=== PATIENT | female | born 1960 | race American Indian/Alaskan Native ===

== ENCOUNTER 2020-12-26 17:16 | Emergency (ER) | payer MEDICAID ==
--- NOTE | 2020-12-26 18:00 | Emergency Department Report ---
Stated Complaint: ARM PAIN/WEAKNESS - HPI History of Present Illness: This is a 60-year-old female with history of CVA and diabetes mellitus who presents with a myriad of concerns. She stated that her landlord called 911 because he she was concerned about her medical state. Initial call to EMS, elevated blood sugar. Upon arrival patient is concerned about a knot at the back of her head. She also states that she has muscle spasms of her right arm. She has minimal strength. She has severe weakness in her right upper extremity. She stated that her left side was paralyzed from 2 previous CVA not the right side. She is unclear when she started to have right arm weakness. She thinks that the arm weakness occurred "the day before last." Screening orders include CT head, CBC chemistry PT PTT. Differential diagnosis includes old CVA, subacute CVA MSE screening note: Focused history and physical exam performed. Due to findings the following was ordered: ED Disposition for MSE Condition: Stable
[2020-12-26 18:31] VITALS: BP 118/79
[2020-12-26 18:53] LABS: Basophils % (Auto) 0.3 % (0.0-1.8); Eosinophils # (Auto) 0.1 K/mm3 (0.0-0.4); Eosinophils % (Auto) 1.6 % (0.0-4.3); Hematocrit 38.4 % (30.3-42.9); Hemoglobin 12.4 gm/dl (10.1-14.3); Lymphocytes # (Auto) 2.4 K/mm3 (1.2-5.4); Lymphocytes % (Auto) 52.7 % (13.4-35.0); Mean Corpuscular HGB Conc 32 % (30-34); Mean Corpuscular Volume 90 fl (79-97); Monocytes # (Auto) 0.4 K/mm3 (0.0-0.8); Monocytes % (Auto) 8.3 % (0.0-7.3); Platelet Count 251 K/mm3 (140-440); Red Blood Count 4.27 M/mm3 (3.65-5.03); Red Cell Distribution Width 18.2 % (13.2-15.2)
[2020-12-26 18:56] LABS: Blood Urea Nitrogen 12 mg/dL (7-17); Calcium 8.8 mg/dL (8.4-10.2); Hemolysis Index 11
[2020-12-26 19:03] LABS: BUN/Creatinine Ratio 17
[2020-12-26 19:05] LABS: INR 0.91 (0.87-1.13)
[2020-12-26 19:06] LABS: Partial Thromboplastin Time 26.6 Sec. (24.2-36.6)
--- NOTE | 2020-12-26 20:59 | Cat Scan Report ---
CT HEAD WITHOUT CONTRAST INDICATION / CLINICAL INFORMATION: RIGHT arm weakness. TECHNIQUE: All CT scans at this location are performed using CT dose reduction for ALARA by means of automated e xposure control. COMPARISON: None available. FINDINGS: HEMORRHAGE: No evidence of intracranial hemorrhage or extra-axial fluid collection. EXTRA-AXIAL SPACES: Cortical sulci, sylvian fissures and basilar cisterns have an unremarkable appear ance. VENTRICULAR SYSTEM: The third and lateral ventricles are the upper limit of normal in size. CEREBRAL PARENCHYMA: No areas of abnormal brain parenchymal attenuation are identified. There is no i ndication of recent infarction. MIDLINE SHIFT OR HERNIATION: There is no mass effect. CEREBELLUM / BRAINSTEM: Brainstem and cerebellum have an unremarkable appearance. MIDLINE STRUCTURES:No abnormalities of the pituitary gland or pineal region are identified. INTRACRANIAL VESSELS:No abnormalities are identified on this noncontrast head CT. ORBITS: Status post left-sided cataract surgery. No additional abnormality. SOFT TISSUES of HEAD: No significant abnormality. CALVARIUM: Evaluation of bone windows reveals no abnormalities. PARANASAL SINUSES / MASTOID AIR CELLS: Visualized portions of the paranasal sinuses are free from inf lammatory mucosal disease. Mastoid air cells are normally pneumatized. IMPRESSION: 1. No acute intracranial abnormality. Signer Name: Nael Cummings MD Signed: 12/26/2020 8:54 PM Workstation Name: [id number]
--- NOTE | 2020-12-26 22:43 | Emergency Department Report ---
ED General Adult HPI - General Chief complaint: Hyperglycemia Stated complaint: ARM PAIN/WEAKNESS Time Seen by Provider: 12/26/20 21:52 Source: patient, EMS Mode of arrival: Ambulatory Limitations: No Limitations - Related Data Previous Rx's Medication Instructions Recorded Last Taken Type Cyclobenzaprine [Flexeril] 10 mg PO TID PRN #30 tablet 12/26/20 Unknown Rx HYDROcodone/APAP 5-325 [[place] 1 each PO Q6HR PRN #10 tablet 12/26/20 Unknown Rx 5/325] Allergies Allergy/AdvReac Type Severity Reaction Status Date / Time No Known Allergies Allergy Unverified 12/26/20 18:25 ED Review of Systems ROS: Stated complaint: ARM PAIN/WEAKNESS Other details as noted in HPI ED Past Medical Hx - Past Medical History Previous Medical History?: Yes Hx Hypertension: Yes Hx CVA: Yes Hx Diabetes: Yes Hx Arthritis: Yes Additional medical history: Carpal tunnel - Surgical History Past Surgical History?: Yes Hx Cholecystectomy: Yes Hx Appendectomy: Yes Additional Surgical History: Left knee, Total right hip, Carpel tunnel - Social History Smoking Status: Current Every Day Smoker Substance Use Type: Alcohol, Prescribed - Medications Home Medications: Home Medications Medication Instructions Recorded Confirmed Last Taken Type Cyclobenzaprine [Flexeril] 10 mg PO TID PRN #30 tablet 12/26/20 Unknown Rx HYDROcodone/APAP 5-325 [[place] 1 each PO Q6HR PRN #10 tablet 12/26/20 Unknown Rx 5/325] ED Physical Exam - General Limitations: No Limitations ED Course Vital Signs 12/26/20 18:29 Temperature 98.5 F Pulse Rate 96 H Respiratory 20 Rate Blood Pressure 118/79 O2 Sat by Pulse 97 Oximetry ED Medical Decision Making - Lab Data Result diagrams: 12/26/20 18:19 12/26/20 18:19 - Radiology Data Radiology results: report reviewed atient ID: [id number] Gender: Female Date of : 1960 Referring Provider: JEANCARLOS MANDUJANO Organization: [facility] Accession Number: [id number] Requested Date: December 26, 2020 17:56 Report Status: Final Requested Procedure: 1 Procedure Description: CT head/brain wo con Modality: CT Findings Reporting MD: Nael Cummings Dictation Time: December 26, 2020 19:54 Streetcar Repairer Helper: Not available Collar Packer Date: CT HEAD WITHOUT CONTRAST INDICATION / CLINICAL INFORMATION: RIGHT arm weakness. TECHNIQUE: All CT scans at this location are performed using CT dose reduction for ALARA by means of automated exposure control. COMPARISON: None available. FINDINGS: HEMORRHAGE: No evidence of intracranial hemorrhage or extra-axial fluid collection. EXTRA-AXIAL SPACES: Cortical sulci, sylvian fissures and basilar cisterns have an unremarkable appearance. VENTRICULAR SYSTEM: The third and lateral ventricles are the upper limit of normal in size. CEREBRAL PARENCHYMA: No areas of abnormal brain parenchymal attenuation are identified. There is no indication of recent infarction. MIDLINE SHIFT OR HERNIATION: There is no mass effect. CEREBELLUM / BRAINSTEM: Brainstem and cerebellum have an unremarkable appearance . MIDLINE STRUCTURES:No abnormalities of the pituitary gland or pineal region are identified. INTRACRANIAL VESSELS:No abnormalities are identified on this noncontrast head CT. ORBITS: Status post left-sided cataract surgery. No additional abnormality. SOFT TISSUES of HEAD: No significant abnormality. CALVARIUM: Evaluation of bone windows reveals no abnormalities. PARANASAL SINUSES / MASTOID AIR CELLS: Visualized portions of the paranasal sinuses are free from inflammatory mucosal disease. Mastoid air cells are normally pneumatized. IMPRESSION: 1. No acute intracranial abnormality. Signer Name: Nael Cummings MD Signed: 12/26/2020 7:54 PM Workstation Name: [id number] Critical care attestation.: If time is entered above; I have spent that time in minutes in the direct care of this critically ill patient, excluding procedure time. ED Disposition Clinical Impression: Muscle spasm, Cyst, Hyperglycemia due to type 2 diabetes mellitus Disposition: 01 HOME / SELF CARE / HOMELESS Is pt being admited?: No Does the pt Need Aspirin: No Condition: Stable Instructions: Diabetes Mellitus Type 2 in Adults (ED) Prescriptions: Cyclobenzaprine [Flexeril] 10 mg PO TID PRN #30 tablet PRN Reason: Muscle Spasm HYDROcodone/APAP 5-325 [[place] 5/325] 1 each PO Q6HR PRN #10 tablet PRN Reason: Pain Referrals: RICHELLE LEBLANC MD [Staff Physician] - 3-5 Days
--- NOTE | 2020-12-26 23:06 | Emergency Department Report ---
ED General Adult HPI - General Chief complaint: Hyperglycemia Stated complaint: ARM PAIN/WEAKNESS PUI?: No Time Seen by Provider: 12/26/20 21:52 Source: patient, EMS Mode of arrival: Ambulatory Limitations: No Limitations - History of Present Illness Initial comments: This is a 60-year-old female with history of CVA and diabetes mellitus who presents with a myriad of concerns. She stated that her landlord called 911 because he she was concerned about her medical state. Initial call to EMS, elevated blood sugar. Upon arrival patient is concerned about a knot at the back of her head. She also states that she has muscle spasms of her right arm. She has minimal strength. She has severe weakness in her right upper extremity. She stated that her left side was paralyzed from 2 previous CVA not the right side. She is unclear when she started to have right arm weakness. She thinks that the arm weakness occurred "the day before last." -: Gradual, unknown Location: head, right, upper extremity Consistency: constant Improves with: none Worsens with: none Associated Symptoms: other ("I really need my Levemir.") Treatments Prior to Arrival: none - Related Data Previous Rx's Medication Instructions Recorded Last Taken Type Cyclobenzaprine [Flexeril] 10 mg PO TID PRN #30 tablet 12/26/20 Unknown Rx HYDROcodone/APAP 5-325 [[place] 1 each PO Q6HR PRN #10 tablet 12/26/20 Unknown Rx 5/325] Insulin Detemir [Levemir VIAL] 22 unit SQ QHS #1 vial 12/26/20 Unknown Rx Allergies Allergy/AdvReac Type Severity Reaction Status Date / Time No Known Allergies Allergy Unverified 12/26/20 18:25 ED Review of Systems ROS: Stated complaint: ARM PAIN/WEAKNESS Other details as noted in HPI Comment: All other systems reviewed and negative Constitutional: denies: chills, fever, malaise ENT: denies: throat pain Respiratory: denies: cough, shortness of breath Cardiovascular: denies: chest pain Skin: lesions Neurological: weakness. denies: numbness, paresthesias ED Past Medical Hx - Past Medical History Previous Medical History?: Yes Hx Hypertension: Yes Hx CVA: Yes Hx Diabetes: Yes Hx Arthritis: Yes Additional medical history: Carpal tunnel - Surgical History Past Surgical History?: Yes Hx Cholecystectomy: Yes Hx Appendectomy: Yes Additional Surgical History: Left knee, Total right hip, Carpel tunnel - Social History Smoking Status: Current Every Day Smoker Substance Use Type: Alcohol, Prescribed - Medications Home Medications: Home Medications Medication Instructions Recorded Confirmed Last Taken Type Cyclobenzaprine [Flexeril] 10 mg PO TID PRN #30 tablet 12/26/20 Unknown Rx HYDROcodone/APAP 5-325 [[place] 1 each PO Q6HR PRN #10 tablet 12/26/20 Unknown Rx 5/325] Insulin Detemir [Levemir VIAL] 22 unit SQ QHS #1 vial 12/26/20 Unknown Rx ED Physical Exam - General Limitations: No Limitations General appearance: alert, in no apparent distress - Head Head exam: Present: atraumatic, normocephalic, other (Unable to palpate or visualize scalp lesion patient points to the occiput) - Eye Eye exam: Present: normal appearance - ENT ENT exam: Present: mucous membranes moist - Neck Neck exam: Present: normal inspection, full ROM - Respiratory Respiratory exam: Present: normal lung sounds bilaterally. Absent: respiratory distress, wheezes, rales, rhonchi - Cardiovascular Cardiovascular Exam: Present: regular rate, normal rhythm, normal heart sounds. Absent: systolic murmur, diastolic murmur, rubs, gallop - GI/Abdominal GI/Abdominal exam: Present: soft, normal bowel sounds. Absent: distended, tenderness, guarding, rebound - Extremities Exam Extremities exam: Present: normal inspection - Neurological Exam Neurological exam: Present: alert, oriented X3, CN II-XII intact, normal gait. Absent: motor sensory deficit - Expanded Neurological Exam Expanded Patient oriented to: Present: person, place, time Speech: Present: fluid speech Sensory exam: Upper Extremity Light Touch: Normal Motor strength exam: RUE: 5, LUE: 5, RLE: 5, LLE: 5 - Psychiatric Psychiatric exam: Present: normal affect, normal mood - Skin Skin exam: Present: warm, dry, intact, normal color. Absent: rash ED Course Vital Signs 12/26/20 18:29 Temperature 98.5 F Pulse Rate 96 H Respiratory 20 Rate Blood Pressure 118/79 O2 Sat by Pulse 97 Oximetry ED Medical Decision Making - Lab Data Result diagrams: 12/26/20 18:19 12/26/20 18:19 Laboratory Results - last 24 hr 12/26/20 12/26/20 12/26/20 18:19 18:19 18:19 WBC 4.5 RBC 4.27 Hgb 12.4 Hct 38.4 MCV 90 MCH 29 MCHC 32 RDW 18.2 H Plt Count 251 Lymph % (Auto) 52.7 H Tripp % (Auto) 8.3 H Eos % (Auto) 1.6 Baso % (Auto) 0.3 Lymph # (Auto) 2.4 Tripp # (Auto) 0.4 Eos # (Auto) 0.1 Baso # (Auto) 0.0 Seg Neutrophils % 37.1 L Seg Neutrophils # 1.7 L PT 12.9 INR 0.91 APTT 26.6 Sodium 132 L Potassium 4.3 Chloride 99.0 Carbon Dioxide 21 L Anion Gap 16 BUN 12 Creatinine 0.7 Estimated GFR > 60 BUN/Creatinine Ratio 17 Glucose 471 H Calcium 8.8 - Radiology Data Radiology results: report reviewed Patient Name: JORGE JONES Gender: Female Date of : 1960 Referring Provider: JEANCARLOS MANDUJANO Organization: [facility] Accession Number: [id number] Requested Date: December 26, 2020 17:56 Report Status: Final Requested Procedure: 1 Procedure Description: CT head/brain wo con Modality: CT Findings Reporting MD: Nael Cummings Dictation Time: December 26, 2020 19:54 Senior Examiner: Not available Health Center Manager Date: CT HEAD WITHOUT CONTRAST INDICATION / CLINICAL INFORMATION: RIGHT arm weakness. TECHNIQUE: All CT scans at this location are performed using CT dose reduction for ALARA by means of automated exposure control. COMPARISON: None available. FINDINGS: HEMORRHAGE: No evidence of intracranial hemorrhage or extra-axial fluid collection. EXTRA-AXIAL SPACES: Cortical sulci, sylvian fissures and basilar cisterns have an unremarkable appearance. VENTRICULAR SYSTEM: The third and lateral ventricles are the upper limit of normal in size. CEREBRAL PARENCHYMA: No areas of abnormal brain parenchymal attenuation are identified. There is no indication of recent infarction. MIDLINE SHIFT OR HERNIATION: There is no mass effect. CEREBELLUM / BRAINSTEM: Brainstem and cerebellum have an unremarkable appearance. MIDLINE STRUCTURES:No abnormalities of the pituitary gland or pineal region are identified. INTRACRANIAL VESSELS:No abnormalities are identified on this noncontrast head CT. ORBITS: Status post left-sided cataract surgery. No additional abnormality. SOFT TISSUES of HEAD: No significant abnormality. CALVARIUM: Evaluation of bone windows reveals no abnormalities. PARANASAL SINUSES / MASTOID AIR CELLS: Visualized portions of the paranasal sinuses are free from inflammatory mucosal disease. Mastoid air cells are normally pneumatized. IMPRESSION: 1. No acute intracranial abnormality. Signer Name: Nael Cummings MD Signed: 12/26/2020 7:54 PM Workstation Name: [id number] - Medical Decision Making 1. Right arm weakness: Unfortunately patient exhibited malingering behavior while on the EMS stretcher. I attempted to screen patient for stroke. She would lift up her right upper extremity with her left upper extremity and then let it flat. When she was escorted to the waiting room, she used her right arm fluently. Unclear of the source for patient secondary gain. She obviously needed to establish primary care. We had a pleasant interaction. She recently moved from [facility] to be with her 2 sisters. She desires a new primary care physician. 2. Cyst on the scalp: No cyst on physical exam. No lesions seen on CT of the head. 3. Acute hyperglycemia due to untreated diabetes mellitus: I have prescribed Levemir with 3 refills. Also refer patient to internal medicine physician Critical care attestation.: If time is entered above; I have spent that time in minutes in the direct care of this critically ill patient, excluding procedure time. ED Disposition Clinical Impression: Cyst, Hyperglycemia due to type 2 diabetes mellitus, Muscle spasm Disposition: 01 HOME / SELF CARE / HOMELESS Is pt being admited?: No Does the pt Need Aspirin: No Condition: Stable Instructions: Diabetes Mellitus Type 2 in Adults (ED) Prescriptions: Insulin Detemir [Levemir VIAL] 22 unit SQ QHS #1 vial Cyclobenzaprine [Flexeril] 10 mg PO TID PRN #30 tablet PRN Reason: Muscle Spasm HYDROcodone/APAP 5-325 [[place] 5/325] 1 each PO Q6HR PRN #10 tablet PRN Reason: Pain Referrals: RICHELLE LEBLANC MD [Staff Physician] - 3-5 Days
== END 2020-12-26 22:47 | disposition home or self-care (01) ==
LOC: ED 17:16
DX: E11.65 Type 2 diabetes mellitus with hyperglycemia (principal); M62.838 Other muscle spasm; L27.8 Dermatitis due to other substances taken internally; E11.8 Type 2 diabetes mellitus with unspecified complications; I10 Essential (primary) hypertension; F10.20 Alcohol dependence, uncomplicated; M19.90 Unspecified osteoarthritis, unspecified site
CPT/HCPCS: 36415; 70450; 80048; 85025; 85610; 85730; 99284

== ENCOUNTER 2020-12-28 14:05 | Emergency (ER) | payer MEDICAID ==
[2020-12-28] MEDS ORDERED: SODIUM CHLORIDE 0.9% 1000 ML 1,000 ML IV ONE (15:06)
--- NOTE | 2020-12-28 15:11 | Emergency Department Report ---
ED Syncope HPI - General Chief Complaint: Weakness Stated Complaint: SYNCOPE Time Seen by Provider: 12/28/20 14:42 Source: patient Exam Limitations: no limitations - History of Present Illness Initial Comments: 60-year female with a past medical history of CVA x2 with residual right-sided deficits and diabetes currently on insulin presents to the hospital complaints of syncopal episode prior to arrival. Patient states she was walking to the store when her vision became blurry and she passed out. She denies any preceding symptoms of headache, chest pain, shortness of breath, or abdominal pain. She states otherwise she was feeling fine and denies nausea, vomiting, diarrhea, melena, medic easier, vaginal bleeding, dysuria, hematuria, fever, or loss of sense of taste or smell. Patient does have cough with clear sputum. She does smoke cigarettes. She has been immunized for Covid. Patient ambulates with a cane at her baseline secondary to previous CVA. Patient reports a previous history of substance abuse but denies current drug abuse or alcohol abuse. Patient was seen here yesterday for elevated blood sugar, concern for knot in the back of her head, and concerned about muscle spasms in her right arm. She was also noted to have right arm weakness with unclear onset but was also seen using the right arm without difficulty with suspected malingering. Patient was ultimately discharged with Flexeril, Garfield, and Levemir. Patient states she has not taken the Garfield since discharge. She states her last dose of insulin was Levemir last night and Humalog this morning. Patient states she ate a smaller amount than usual this morning she states her right side has been weak since her previous stroke Patient is requesting pain medication for the "cyst" on the back of her head diagnosed yesterday. The pain to the posterior scalp is constant and worse with palpation. She declined Tylenol because she states it will not work. I informed her that her blood pressure is too low to receive narcotics at this time. She is also requesting food but has been denied because she is hyperglycemic. Despite her elevated glucose during her visit yesterday and today patient states she has been compliant with her insulin therapy. - Related Data Allergies/Adverse Reactions: Allergies ibuprofen Allergy (Mild, Verified 12/28/20 14:50) Hives tramadol Allergy (Verified 12/28/20 14:51) Rash Home Medications: Ambulatory Orders Cyclobenzaprine [Flexeril] 10 mg PO TID PRN #30 tablet 12/26/20 HYDROcodone/APAP 5-325 [Garfield 5/325] 1 each PO Q6HR PRN #10 tablet 12/26/20 Insulin Detemir [Levemir VIAL] 22 unit SQ QHS #1 vial 12/26/20 ED Review of Systems ROS: Stated complaint: SYNCOPE Other details as noted in HPI Comment: All other systems reviewed and negative ED Past Medical Hx - Past Medical History Hx Hypertension: Yes Hx CVA: Yes Hx Heart Attack/AMI: Yes Hx Diabetes: Yes Hx Arthritis: Yes Additional medical history: Carpal tunnel right. right hip replacement. left knee replacement - Surgical History Hx Cholecystectomy: Yes Hx Appendectomy: Yes Additional Surgical History: Left knee, Total right hip, Carpel tunnel - Social History Smoking Status: Former Smoker - Medications Home Medications: Home Medications Medication Instructions Recorded Confirmed Last Taken Type Cyclobenzaprine [Flexeril] 10 mg PO TID PRN #30 tablet 12/26/20 Unknown Rx HYDROcodone/APAP 5-325 [Garfield 1 each PO Q6HR PRN #10 tablet 12/26/20 Unknown Rx 5/325] Insulin Detemir [Levemir VIAL] 22 unit SQ QHS #1 vial 12/26/20 Unknown Rx ED Physical Exam - General Limitations: No Limitations - Other Other exam information: General: No acute distress Head: Atraumatic Eyes: normal appearance ENT: Moist mucous membranes Neck: Normal appearance, no midline tenderness Chest: Clear to auscultation bilaterally CV: Regular rate and rhythm Abdomen: Soft, previous surgical scars noted. Reducible umbilical hernia. Nontender abdomen without rebound or guarding Back: Normal inspection Extremity: Several small nodules to right posterior wrist secondary to carpal tunnel Neuro: Alert O x 3, speech clear, right arm 4/5 strength, right leg 3/5 stre ngth. Left arm 4/5, left leg 4/5 Psych: Appropriate behavior Skin: No rash ED Course Vital Signs 12/28/20 12/28/20 12/28/20 14:27 14:30 14:46 Temperature Pulse Rate 100 H 102 H 98 H Respiratory 11 L 20 18 Rate Blood Pressure 80/42 O2 Sat by Pulse 98 Oximetry 12/28/20 12/28/20 12/28/20 15:00 15:10 16:00 Temperature 97.9 F Pulse Rate 99 H 92 H Respiratory 22 15 Rate Blood Pressure 74/51 83/50 O2 Sat by Pulse 98 95 Oximetry - Reevaluation(s) Reevaluation #1: 12/28/20 16:47 IV fluids just initiated. Patient's blood pressure currently 103/43. She is sitting on the side of bed upset because we are refusing to feed her. Once again I tried to explain that her sugar is in the 300-400. Once we can stabilize her sugar we will gladly feed her. Her response is she is unconcerned about her sugar being high because it has been in the 500s before. I once again explained not intentionally trying to start her. I have insulin ordered. Patient wants her IV out and wants to sign out AGAINST MEDICAL ADVICE ED Medical Decision Making - Lab Data Result diagrams: 12/28/20 15:16 12/28/20 15:16 Lab Results 12/28/20 12/28/20 12/28/20 Range/Units 15:07 15:16 15:16 WBC 4.3 L (4.5-11.0) K/mm3 RBC 4.46 (3.65-5.03) M/mm3 Hgb 12.9 (10.1-14.3) gm/dl Hct 38.7 (30.3-42.9) % MCV 87 (79-97) fl MCH 29 (28-32) pg MCHC 33 (30-34) % RDW 17.8 H (13.2-15.2) % Plt Count 258 (140-440) K/mm3 Lymph % (Auto) 35.7 H (13.4-35.0) % Amelia % (Auto) 7.4 H (0.0-7.3) % Eos % (Auto) 1.8 (0.0-4.3) % Baso % (Auto) 0.5 (0.0-1.8) % Lymph # (Auto) 1.5 (1.2-5.4) K/mm3 Amelia # (Auto) 0.3 (0.0-0.8) K/mm3 Eos # (Auto) 0.1 (0.0-0.4) K/mm3 Baso # (Auto) 0.0 (0.0-0.1) K/mm3 Seg Neutrophils % 54.6 (40.0-70.0) % Seg Neutrophils # 2.4 (1.8-7.7) K/mm3 PT 13.0 (12.2-14.9) Sec. INR 0.92 (0.87-1.13) VBG pH (7.320-7.420) Sodium (137-145) mmol/L Potassium (3.6-5.0) mmol/L Chloride (98-107) mmol/L Carbon Dioxide (22-30) mmol/L Anion Gap mmol/L BUN (7-17) mg/dL Creatinine (0.6-1.2) mg/dL Estimated GFR ml/min BUN/Creatinine Ratio % Glucose (65-100) mg/dL POC Glucose 434 H (70-105) mg/dL Calcium (8.4-10.2) mg/dL Magnesium (1.7-2.3) mg/dL Total Bilirubin (0.1-1.2) mg/dL AST (5-40) units/L ALT (7-56) units/L Alkaline Phosphatase (35-129) units/L Total Creatine Kinase (30-135) units/L CK-MB (CK-2) (0.0-4.0) ng/mL CK-MB (CK-2) Rel Index (0-4) Troponin T (0.00-0.029) ng/mL Total Protein (6.3-8.2) g/dL Albumin (3.9-5) g/dL Albumin/Globulin Ratio % Acetaminophen (10.0-30.0) ug/mL Plasma/Serum Alcohol (0-0.07) % 12/28/20 12/28/20 12/28/20 Range/Units 15:16 15:16 15:16 WBC (4.5-11.0) K/mm3 RBC (3.65-5.03) M/mm3 Hgb (10.1-14.3) gm/dl Hct (30.3-42.9) % MCV (79-97) fl MCH (28-32) pg MCHC (30-34) % RDW (13.2-15.2) % Plt Count (140-440) K/mm3 Lymph % (Auto) (13.4-35.0) % Amelia % (Auto) (0.0-7.3) % Eos % (Auto) (0.0-4.3) % Baso % (Auto) (0.0-1.8) % Lymph # (Auto) (1.2-5.4) K/mm3 Amelia # (Auto) (0.0-0.8) K/mm3 Eos # (Auto) (0.0-0.4) K/mm3 Baso # (Auto) (0.0-0.1) K/mm3 Seg Neutrophils % (40.0-70.0) % Seg Neutrophils # (1.8-7.7) K/mm3 PT (12.2-14.9) Sec. INR (0.87-1.13) VBG pH 7.385 (7.320-7.420) Sodium 129 L (137-145) mmol/L Potassium 5.0 (3.6-5.0) mmol/L Chloride 96.9 L (98-107) mmol/L Carbon Dioxide 23 (22-30) mmol/L Anion Gap 14 mmol/L BUN 13 (7-17) mg/dL Creatinine 0.7 (0.6-1.2) mg/dL Estimated GFR > 60 ml/min BUN/Creatinine Ratio 19 % Glucose 391 H (65-100) mg/dL POC Glucose (70-105) mg/dL Calcium 9.6 (8.4-10.2) mg/dL Magnesium 2.00 (1.7-2.3) mg/dL Total Bilirubin 0.40 (0.1-1.2) mg/dL AST 13 (5-40) units/L ALT 10 (7-56) units/L Alkaline Phosphatase 123 (35-129) units/L Total Creatine Kinase 35 (30-135) units/L CK-MB (CK-2) < 1.0 (0.0-4.0) ng/mL CK-MB (CK-2) Rel Index 2.8 (0-4) Troponin T < 0.010 (0.00-0.029) ng/mL Total Protein 7.2 (6.3-8.2) g/dL Albumin 3.6 L (3.9-5) g/dL Albumin/Globulin Ratio 1.0 % Acetaminophen 5.0 L (10.0-30.0) ug/mL Plasma/Serum Alcohol (0-0.07) % 08/30/21 Range/Units 15:16 WBC (4.5-11.0) K/mm3 RBC (3.65-5.03) M/mm3 Hgb (10.1-14.3) gm/dl Hct (30.3-42.9) % MCV (79-97) fl MCH (28-32) pg MCHC (30-34) % RDW (13.2-15.2) % Plt Count (140-440) K/mm3 Lymph % (Auto) (13.4-35.0) % Amelia % (Auto) (0.0-7.3) % Eos % (Auto) (0.0-4.3) % Baso % (Auto) (0.0-1.8) % Lymph # (Auto) (1.2-5.4) K/mm3 Amelia # (Auto) (0.0-0.8) K/mm3 Eos # (Auto) (0.0-0.4) K/mm3 Baso # (Auto) (0.0-0.1) K/mm3 Seg Neutrophils % (40.0-70.0) % Seg Neutrophils # (1.8-7.7) K/mm3 PT (12.2-14.9) Sec. INR (0.87-1.13) VBG pH (7.320-7.420) Sodium (137-145) mmol/L Potassium (3.6-5.0) mmol/L Chloride (98-107) mmol/L Carbon Dioxide (22-30) mmol/L Anion Gap mmol/L BUN (7-17) mg/dL Creatinine (0.6-1.2) mg/dL Estimated GFR ml/min BUN/Creatinine Ratio % Glucose (65-100) mg/dL POC Glucose (70-105) mg/dL Calcium (8.4-10.2) mg/dL Magnesium (1.7-2.3) mg/dL Total Bilirubin (0.1-1.2) mg/dL AST (5-40) units/L ALT (7-56) units/L Alkaline Phosphatase (35-129) units/L Total Creatine Kinase (30-135) units/L CK-MB (CK-2) (0.0-4.0) ng/mL CK-MB (CK-2) Rel Index (0-4) Troponin T (0.00-0.029) ng/mL Total Protein (6.3-8.2) g/dL Albumin (3.9-5) g/dL Albumin/Globulin Ratio % Acetaminophen (10.0-30.0) ug/mL Plasma/Serum Alcohol < 0.01 (0-0.07) % - Medical Decision Making 60-year-old female presents to the hospital for the second day interval. This time for syncope. Patient was found to be hypotensive and hyperglycemic upon arrival. Patient initially requesting narcotic pain medication and food. It was explained that her blood pressure was low too low to receive narcotic pain medication and Tylenol was offered. Tylenol was reviewed. Patient is hyperglycemic without signs of DKA. We told patient that she would need to wait till her sugar was treated prior to receiving food. Patient became irate stating we refusing to let her eat and no longer wanted any further medical treatment. AMA form printed along with discharge. Blood pressure has improved prior to patient discharge. She is alert and oriented x3. Critical Care Time: No Critical care attestation.: If time is entered above; I have spent that time in minutes in the direct care of this critically ill patient, excluding procedure time. ED Disposition Clinical Impression: Hyperglycemia due to type 2 diabetes mellitus, Syncope, Hypotension Disposition: 07 LEFT AGAINST MEDICAL ADVICE Is pt being admited?: No Condition: Stable Instructions: Diabetes Mellitus Type 2 in Adults (ED), Syncope (ED), Syncope, Insulin Treatment for Diabetes Mellitus, Hyperglycemia Additional Instructions: You are signing out AGAINST MEDICAL ADVICE. Initially presents to the ER because she passed out your blood pressure was low and your sugar is high. We have not been able to fully treat you for these issues. The cause of your passing out/syncope has not been identified. You are at risk for increased morbidity and mortality (worsening illness and ) and are refusing further medical care. Referrals: [facility] [Provider Group] - 3-5 Days PETER MENDEZ MD [Staff Physician] - 3-5 Days Forms: AMA Form Time of Disposition: 16:51
[2020-12-28 15:32] LABS: Basophils % (Auto) 0.5 % (0.0-1.8); Eosinophils # (Auto) 0.1 K/mm3 (0.0-0.4); Eosinophils % (Auto) 1.8 % (0.0-4.3); Hematocrit 38.7 % (30.3-42.9); Hemoglobin 12.9 gm/dl (10.1-14.3); Lymphocytes # (Auto) 1.5 K/mm3 (1.2-5.4); Lymphocytes % (Auto) 35.7 % (13.4-35.0); Mean Corpuscular HGB Conc 33 % (30-34); Mean Corpuscular Volume 87 fl (79-97); Monocytes # (Auto) 0.3 K/mm3 (0.0-0.8); Monocytes % (Auto) 7.4 % (0.0-7.3); Platelet Count 258 K/mm3 (140-440); Red Blood Count 4.46 M/mm3 (3.65-5.03); Red Cell Distribution Width 17.8 % (13.2-15.2)
[2020-12-28 15:43] LABS: INR 0.92 (0.87-1.13)
--- NOTE | 2020-12-28 15:46 | XRay Report ---
CHEST 1 VIEW INDICATION: cough, syncope. COMPARISON: None FINDINGS: SUPPORT DEVICES: None. HEART: Within normal limits. LUNGS/PLEURA: Mild bilateral central peribronchial thickening without consolidation or effusion. Fin dings could represent early edema or could be seen with tracheobronchitis. ADDITIONAL FINDINGS: None. IMPRESSION: 1. Pulmonary findings as above. Signer Name: John Garrett MD Signed: 12/28/2020 3:42 PM Workstation Name: [id number]
[2020-12-28 15:59] LABS: Creatine Kinase MB < 1.0 ng/mL (0.0-4.0)
[2020-12-28 16:00] LABS: Alanine Aminotransferase 10 units/L (7-56); Albumin 3.6 g/dL (3.9-5); BUN/Creatinine Ratio 19; Blood Urea Nitrogen 13 mg/dL (7-17); Calcium 9.6 mg/dL (8.4-10.2); Hemolysis Index 10
[2020-12-28 16:16] VITALS: BP 83/50
[2020-12-28] MEDS ORDERED: INSULIN REGULAR, HUMAN 100 UNITS/1 ML IV ONE (16:35)
--- NOTE | 2020-12-29 09:46 | Electrocardiograph Report ---
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
== END 2020-12-28 21:32 | disposition left against medical advice (07) ==
LOC: ED 14:05
DX: E11.65 Type 2 diabetes mellitus with hyperglycemia (principal); R55 Syncope and collapse; I95.9 Hypotension, unspecified; I63.9 Cerebral infarction, unspecified; M19.90 Unspecified osteoarthritis, unspecified site; G56.01 Carpal tunnel syndrome, right upper limb; Z98.890 Other specified postprocedural states; Z87.891 Personal history of nicotine dependence; Z88.5 Allergy status to narcotic agent; Z88.6 Allergy status to analgesic agent
CPT/HCPCS: 36415; 71045; 80053; 82550; 82553; 82805; 82962; 83735; 84484; 85025; 85610; 93005; 96360; 99284; J7030; 80320; G0480

== ENCOUNTER 2021-11-12 07:46 | Emergency (ER) | payer MEDICAID ==
[2021-11-12 07:53] VITALS: BP 114/80
[2021-11-12 09:34] LABS: Hematocrit 46.4 % (30.3-42.9); Hemoglobin 15.1 gm/dl (10.1-14.3); Mean Corpuscular HGB Conc 33 % (30-34); Mean Corpuscular Volume 90 fl (79-97); Platelet Count 310 K/mm3 (140-440); Red Blood Count 5.14 M/mm3 (3.65-5.03); Red Cell Distribution Width 15.9 % (13.2-15.2)
[2021-11-12 09:57] LABS: Alanine Aminotransferase 18 units/L (7-56); Albumin 3.9 g/dL (3.9-5); Blood Urea Nitrogen 14 mg/dL (7-17); Calcium 9.2 mg/dL (8.4-10.2); Hemolysis Index 6
[2021-11-12 09:58] LABS: BUN/Creatinine Ratio 23
--- NOTE | 2021-11-12 12:11 | Event Note ---
ED Screening Note ED Screening Note: cc cough/fever/ n-v/ diarrhea since last night sav montserrat eloquis others she does not recall pmh dm htn neuropathy pcp none This initial assessment/diagnostic orders/clinical plan/treatment(s) is/are subject to change based on patients health status, clinical progression and re- assessment by fellow clinical providers in the ED. Further treatment and workup at subsequent clinical providers discretion. Patient/guardian urged not to elope from the ED as their condition may be serious if not clinically assessed and managed. Initial orders include: labs urine BG 410 on labs
[2021-11-12] MEDS ORDERED: SODIUM CHLORIDE 0.9% 1000 ML 1,000 ML IV ONE (14:59)
[2021-11-12] MEDS ORDERED: INSULIN REGULAR, HUMAN 100 UNITS/1 ML IV ONE (14:59)
--- NOTE | 2021-11-12 15:05 | Emergency Department Report ---
ED General Adult HPI - General Chief complaint: Nausea/Vomiting/Diarrhea Stated complaint: VOMITING Time Seen by Provider: 11/12/21 13:06 Source: patient, EMS Mode of arrival: Stretcher Limitations: No Limitations - History of Present Illness Initial comments: Patient is a 61-year-old female that comes to the emergency room with nausea vomiting and diarrhea. She is diabetic. She states that she just left [facility] and they cannot tell her what was wrong. So she comes in an ambulance to [facility]. -: Gradual, days(s) Severity scale (0 -10): 6 Associated Symptoms: denies other symptoms, nausea/vomiting. denies: confusion, chest pain, cough, diaphoresis, fever/chills, headaches, loss of appetite, malaise, rash, seizure, shortness of breath, syncope, weakness Treatments Prior to Arrival: none - Related Data Allergies Allergy/AdvReac Type Severity Reaction Status Date / Time ibuprofen Allergy Mild Hives Verified 12/28/20 14:50 egg Allergy Rash Verified 11/12/21 07:54 tomato Allergy Rash Verified 11/12/21 07:54 tramadol Allergy Rash Verified 12/28/20 14:51 ED Review of Systems ROS: Stated complaint: VOMITING Other details as noted in HPI Comment: All other systems reviewed and negative ED Past Medical Hx - Past Medical History Previous Medical History?: Yes Hx Hypertension: Yes Hx CVA: Yes Hx Heart Attack/AMI: Yes Hx Congestive Heart Failure: No Hx Diabetes: Yes (type 2) Hx Deep Vein Thrombosis: No Hx Pulmonary Embolism: No Hx GERD: No Hx Liver Disease: No Hx Renal Disease: No Hx of Cancer: No Hx Sickle Cell Disease: No Hx Arthritis: Yes Hx Headaches / Migraines: No Hx Seizures: No Hx Kidney Stones: No Hx Psychiatric Treatment: No Hx Asthma: No Hx COPD: Yes Hx Tuberculosis: No Hx Dementia: No Hx HIV: No Additional medical history: Carpal tunnel right. right hip replacement. left knee replacement - Surgical History Past Surgical History?: Yes Hx Coronary Stent: No Hx Open Heart Surgery: No Hx Pacemaker: No Hx Internal Defibrillator: No Hx Cholecystectomy: Yes Hx Appendectomy: Yes Hx Breast Surgery: No Additional Surgical History: Left knee, Total right hip, Carpel tunnel - Social History Smoking Status: Never Smoker ED Physical Exam - General Limitations: No Limitations General appearance: alert, in no apparent distress - Head Head exam: Present: atraumatic, normocephalic - Eye Eye exam: Present: normal appearance - ENT ENT exam: Present: mucous membranes moist - Neck Neck exam: Present: normal inspection - Respiratory Respiratory exam: Present: normal lung sounds bilaterally. Absent: respiratory distress - Cardiovascular Cardiovascular Exam: Present: regular rate, normal rhythm. Absent: systolic murmur, diastolic murmur, rubs, gallop - GI/Abdominal GI/Abdominal exam: Present: soft, normal bowel sounds - Extremities Exam Extremities exam: Present: normal inspection - Back Exam Back exam: Present: normal inspection - Neurological Exam Neurological exam: Present: alert, oriented X3 - Psychiatric Psychiatric exam: Present: normal affect, normal mood - Skin Skin exam: Present: warm, dry, intact, normal color. Absent: rash ED Course Vital Signs 11/12/21 07:49 Temperature 98.5 F Pulse Rate 108 H Respiratory 16 Rate Blood Pressure 114/80 [Left] O2 Sat by Pulse 97 Oximetry - Reevaluation(s) Reevaluation #1: 11/12/21 16:36 Patient reports that she is on home Eliquis and gabapentin. She cannot remember her other medications. ED Medical Decision Making - Lab Data Result diagrams: 11/12/21 08:45 11/12/21 08:45 - Radiology Data Radiology results: report reviewed, image reviewed No acute process - Medical Decision Making Labs 11/12/21 11/12/21 11/12/21 08:38 08:45 08:45 WBC 7.8 RBC 5.14 H Hgb 15.1 H Hct 46.4 H MCV 90 MCH 30 MCHC 33 RDW 15.9 H Plt Count 310 VBG pH Sodium 134 L Potassium 4.6 Chloride 93.3 L Carbon Dioxide 28 Anion Gap 17 BUN 14 Creatinine 0.6 Estimated GFR > 60 BUN/Creatinine Ratio 23 Glucose 410 H Calcium 9.2 Total Bilirubin 0.40 AST 17 ALT 18 Alkaline Phosphatase 142 H Troponin T < 0.010 Total Protein 7.6 Albumin 3.9 Albumin/Globulin Ratio 1.1 Lipase 34 11/12/21 08:45 WBC RBC Hgb Hct MCV MCH MCHC RDW Plt Count VBG pH 7.366 Sodium Potassium Chloride Carbon Dioxide Anion Gap BUN Creatinine Estimated GFR BUN/Creatinine Ratio Glucose Calcium Total Bilirubin AST ALT Alkaline Phosphatase Troponin T Total Protein Albumin Albumin/Globulin Ratio Lipase Vital Signs 11/12/21 07:49 Temperature 98.5 F Pulse Rate 108 H Respiratory 16 Rate Blood Pressure 114/80 [Left] O2 Sat by Pulse 97 Oximetry Patient is diabetic and hyperglycemic. She is tachycardic to 108. Patient was moved to fast track for hydration and insulin. The electrical maintenance worker attempted to put an INT on her but she reads demanding ultrasound and he stated he did not know how to use the ultrasound. Nurses stated that they have to be certified to use the ultrasound. There is only 1 nurse in fast track and she is not certified to use the ultrasound. I went into the room to put an IV in the patient however, she states that she is hungry and she wants to eat prior to getting her IV hydration. However, she refused to stay stating that she was hungry and that she wanted to get something to eat. Patient left ER AMA prior to completion of treatment. She states she will come back and check in - Differential Diagnosis DKA versus hyperglycemia: Rule out acute infection Critical care attestation.: If time is entered above; I have spent that time in minutes in the direct care of this critically ill patient, excluding procedure time. ED Disposition Clinical Impression: Hyperglycemia Disposition: 07 LEFT AGAINST MEDICAL ADVICE Is pt being admited?: No Does the pt Need Aspirin: No Condition: Stable Time of Disposition: 16:38
[2021-11-12] MEDS ORDERED: GABAPENTIN 300 MG CAP PO ONE (15:24)
--- NOTE | 2021-11-12 15:39 | XRay Report ---
CHEST 2 VIEWS INDICATION / CLINICAL INFORMATION: cp. COMPARISON: December 28, 2020 FINDINGS: SUPPORT DEVICES: None. HEART / MEDIASTINUM: No significant abnormality. LUNGS / PLEURA: Minimal atelectasis in the left lower lung. Mild elevation left hemidiaphragm No pneu mothorax. ADDITIONAL FINDINGS: No significant additional findings. IMPRESSION: 1. No acute findings. Signer Name: Sukh Campos MD Signed: 11/12/2021 3:35 PM Workstation Name: [id number]
[2021-11-12 17:03] LABS: Bilirubin,Urine NEG (Negative); Blood,Urine NEG (Negative); Color,Urine Yellow (Yellow); Protein,Urine <15 mg/dL mg/dL (Negative); Urobilinogen,Urine < 2.0 mg/dL (<2.0)
[2021-11-12 17:09] LABS: Mucus,Urine FEW /HPF
--- NOTE | 2021-11-14 15:11 | Electrocardiograph Report ---
[facility] Test Date: 2021-11-12 Test Time: 10:19:36 Pat Name: JORGE JONES Department: Room: Gender: F Youtuber: OVI : 1960 Requested By: CECILIO MONROE Order Number: [id number] Reading MD: Shantelle Francois Measurements Intervals [place] Rate: 110 P: 81 NH: 146 QRS: 64 QRSD: 60 T: 69 QT: 338 QTc: 457 Interpretive Statements Sinus tachycardia Right atrial enlargement Compared to ECG 12/28/2020 15:47:21 Atrial abnormality now present Sinus rhythm no longer present Electronically Signed On 11-14-2021 15:11:11 EDT by Shantelle Francois
== END 2021-11-14 10:05 | disposition left against medical advice (07) ==
LOC: ED 07:46
DX: E11.65 Type 2 diabetes mellitus with hyperglycemia (principal); I10 Essential (primary) hypertension; Z88.8 Allergy status to other drugs, medicaments and biological substances; Z88.6 Allergy status to analgesic agent; Z91.018 Allergy to other foods
CPT/HCPCS: 36415; 71046; 80053; 81001; 82805; 83690; 84484; 85027; 93005; 99284